=== PATIENT | male | born 1985 | race Caucasian/White ===

== ENCOUNTER 2018-03-15 05:06 | Emergency (ER) | payer SELFPAY ==
[~2018-03-15] VITALS: Ht 177.8 cm; Wt 58.1 kg
[~2018-03-15 05:06] MED LIST: BACTRIM DS 8001 TA1 PO; CEPHALEXIN500 M1 PO; HYDROCODONE BIT1 T11 PO; IBU800 M1 PO; PERCOCET 325 MG1 TA2 PO; TRAMADOL HCL50 MG PO; ULTRAM50 MG PO; VICODIN 5/500 505 MG PO
[2018-03-15 07:09] LABS: BASO # 0.1 10*3/uL (0.0-0.1); BASO % 0.9 % (0.0-1.0); EOS # 0.1 10*3/uL (0.0-0.4); EOS % 1.7 % (1.0-4.0); HEMATOCRIT 41.8 % (42.0-52.0); LYMPH # 2.1 10*3/uL (1.3-4.4); LYMPH % 36.9 % (27.0-41.0); MEAN CELL VOLUME 97.4 fl (80.0-94.0); MEAN CORPUSCULAR HGB 32.6 pg (27.0-31.0); MEAN CORPUSCULAR HGB CONC 33.5 g/dl (33.0-37.0); MEAN PLATELET VOLUME 9.7 fl (9.6-12.3); MONO # 0.8 10*3/uL (0.1-1.0); MONO % 13.2 % (3.0-9.0); NEUT # 2.7 10*3/uL (2.3-7.9); NEUT % 47.1 % (47.0-73.0); PLATELET COUNT AUTOMATED 274 10*3/uL (130-400); RED BLOOD COUNT 4.29 10*6/uL (4.50-5.90); RED CELL DISTRI WIDTH 13.3 % (0-14.5); WHITE BLOOD COUNT 5.8 10*3/uL (4.8-10.8)
[2018-03-15 07:23] LABS: ALBUMIN 3.7 gm/dl (3.1-4.5); ALKALINE PHOSPHATASE 118 U/L (45-117); BUN 13 mg/dl (7-24); CHLORIDE 102 mmol/L (98-107); POTASSIUM 3.7 mmol/L (3.5-5.1); SGOT/AST 40 IU/L (3-35); SGPT/ALT 56 U/L (12-78); SODIUM 138 mmol/L (136-145); TOTAL PROTEIN 7.4 gm/dL (6.4-8.2)
[2018-03-15 07:27] LABS: ETHYL ALCOHOL < 3.0 mg/dl (<3); TROPONIN I < 0.015 ng/ml (<0.045)
== END 2018-03-15 07:39 | disposition home or self-care (01) ==
LOC: ED 05:06
PROVIDERS: Emergency Medicine
DX: T40.1X1A Poisoning by heroin, accidental (unintentional), initial encounter (principal); F17.200 Nicotine dependence, unspecified, uncomplicated; Y92.9 Unspecified place or not applicable